=== PATIENT | male | born 1955 | race Caucasian/White ===

== ENCOUNTER 2016-12-10 17:56 | Emergency (ER) | payer BC ==
[~2016-12-10] VITALS: Ht 165.1 cm; Wt 88.3 kg
[~2016-12-10 17:56] MED LIST: ASPI81TA28 PO; METO25TA3 PO; PRT/20 PO; VALA1TAB31 PO
[2016-12-10 18:02] VITALS: TEMP 36.7; Ht 165.1 cm; Wt 88.3 kg
[2016-12-10 18:04] VITALS: O2SAT 98
[2016-12-10] MEDS ORDERED: SODIUM CHLORIDE 0.9% 1000ML 1,000 ML IV STA (18:25)
[2016-12-10] MEDS ORDERED: SODIUM CHLORIDE 0.9% 1000ML 1,000 ML IV ONE (18:25)
--- NOTE | 2016-12-10 18:32 | EMERGENCY ROOM VISIT NOTE ---
History Report prepared by Tyrone: Freya Sauceda Under the Supervision of: Dr. Valdez Gonzalez M.D. First contact with patient: 18:20 Chief Complaint: CARDIAC ASSESSMENT Stated Complaint: RACING HEART, LIGHT HEADED Nursing Triage Summary: Pt reports rapid heart rate at 1700 today hx SVT History of Present Illness The patient is a 61 year old male who presents to the Emergency Room via with complaints of an episode of racing heartbeat with onset 1.5 hours ago. The patient states that he has a history of SVT and his heart started racing about 1.5 hours ago. The patient had some chest pressure. He was getting up from sitting on the couch when he started to have these symptoms. The patient's heart was racing so quickly that he could not take his pulse. He states that he has the episodes of SVT The patient relates that he has taken his medication as prescribed. He is tired. He denies fevers, a history of heart attack, a history of atrial fibrillation. The patient takes aspirin daily. Additionally, the patient states that his neck was adjusted one day ago by his chiropractor. He denies tingling in his neck. Source of History: patient, spouse/significant other Onset: 1.5 hours ago Position: chest Quality: other (SVT) Timing: other (persistent) Associated Symptoms: + fatigue, No fevers Note: The patient denies tingling in his neck. Review of Systems See HPI for pertinent positives & negatives. A total of 10 systems reviewed and were otherwise negative. Past Medical & Surgical Medical Problems: (1) Meniscus tear (2) Shingles Surgical Problems: (1) S/P appendectomy Old medical records were reviewed. Nurse's notes were reviewed and I agree with. Family History Diabetes mellitus Heart disease Hypertension Social History Smoking Status: Former Smoker Alcohol Use: none Marital Status: Housing Status: lives with significant other Occupation Status: employed Current/Historical Medications Scheduled Aspirin (Aspirin Ec), 81 MG PO DAILY Metoprolol Succinate (Toprol Xl), 25 MG PO DAILY Multivitamin (Multivitamin), 1 TAB PO DAILY Pantoprazole (Protonix), 20 MG PO DAILY Scheduled PRN Chlorpheniramine Maleate (Chlor-Trimeton Allergy), 12 MG PO DAILY PRN for PRN Allergies Coded Allergies: Naproxen (Verified Allergy, Unknown, 12/10/16) Physical Exam Vital Signs Date Time Temp Pulse Resp B/P Pulse Ox O2 Delivery O2 Flow Rate FiO2 12/10/16 20:11 77 20 116/79 96 12/10/16 19:36 83 20 106/78 95 Room Air 12/10/16 18:38 91 18 125/67 95 Room Air 12/10/16 18:15 90 12/10/16 18:04 98 Room Air 12/10/16 18:02 36.7 102 20 131/85 98 Room Air Physical Exam General: Non ill appearing middle aged male in no acute distress. HEENT: Normal cephalic atraumatic. Pupils are equal round and reactive to light. Extraocular movements are intact. Oropharynx is pink with moist mucous membranes. No swelling of the mouth lips or tongue. Neck: Supple with a midline trachea. No meningeal signs or stiffness, no JVD or bruits. No Stridor. Chest: Clear to auscultation bilaterally. No wheezes or rhonchi. No increased work of breathing. Heart: regular rate and rhythm. Abdomen: Soft nontender, nondistended without rebound guarding or rigidity. Extremities: No cyanosis clubbing or edema. No calf tenderness or assymetry Spine/Back. Non tender to palpation. No CVA tenderness Skin: Good turgor without rashes. Neurologic exam: Cranial nerves two through 12 are intact. Motor and sensation are intact and symmetrical throughout. Medical Decision & Procedures ER Provider Diagnostic Interpretation: X-ray results as stated below per interpretation by me and the radiologist: CHEST ONE VIEW PORTABLE CLINICAL HISTORY: CHEST PAIN dyspnea COMPARISON STUDY: 02/24/2016 FINDINGS: The bones soft tissues and hemidiaphragms are normal. The cardiomediastinal silhouette is normal. The lungs are clear. The pulmonary vasculature is normal. IMPRESSION: Negative chest. Electronically signed by: Patricio Juares M.D. 12/10/2016 7:10 PM Dictated Date/Time: 12/10/2016 7:10 PM Laboratory Results 12/10/16 18:15 Red Blood Count 5.16, Mean Corpuscular Volume 81.4, Mean Corpuscular Hemoglobin 29.3, Mean Corpuscular Hemoglobin Concent 36.0, Mean Platelet Volume 10.4, Neutrophils (%) (Auto) 49.1, Lymphocytes (%) (Auto) 35.1, Monocytes (%) (Auto) 11.6, Eosinophils (%) (Auto) 3.4, Basophils (%) (Auto) 0.4, Neutrophils # (Auto ) 3.30, Lymphocytes # (Auto) 2.36, Monocytes # (Auto) 0.78, Eosinophils # (Auto ) 0.23, Basophils # (Auto) 0.03 12/10/16 18:15 Test 12/10/16 18:15 12/10/16 18:25 12/10/16 18:30 White Blood Count 6.73 K/uL (4.8-10.8) Red Blood Count 5.16 M/uL (4.7-6.1) Hemoglobin 15.1 g/dL (14.0-18.0) Hematocrit 42.0 % (42-52) Mean Corpuscular Volume 81.4 fL (80-100) Mean Corpuscular Hemoglobin 29.3 pg (25-34) Mean Corpuscular Hemoglobin Concent 36.0 g/dl (32-36) Platelet Count 240 K/uL (130-400) Mean Platelet Volume 10.4 fL (7.4-10.4) Neutrophils (%) (Auto) 49.1 % Lymphocytes (%) (Auto) 35.1 % Monocytes (%) (Auto) 11.6 % Eosinophils (%) (Auto) 3.4 % Basophils (%) (Auto) 0.4 % Neutrophils # (Auto) 3.30 K/uL (1.4-6.5) Lymphocytes # (Auto) 2.36 K/uL (1.2-3.4) Monocytes # (Auto) 0.78 K/uL (0.11-0.59) Eosinophils # (Auto) 0.23 K/uL (0-0.5) Basophils # (Auto) 0.03 K/uL (0-0.2) RDW Standard Deviation 36.6 fL (36.4-46.3) RDW Coefficient of Variation 12.5 % (11.5-14.5) Immature Granulocyte % (Auto) 0.4 % Immature Granulocyte # (Auto) 0.03 K/uL (0.00-0.02) Anion Gap 12.0 mmol/L (3-11) Est Creatinine Clear Calc Drug Dose 81.2 ml/min Estimated GFR () 95.1 Estimated GFR (Non- 82.0 BUN/Creatinine Ratio 16.7 (10-20) Calcium Level 8.7 mg/dl (8.5-10.1) Total Bilirubin 0.1 mg/dl (0.2-1) Direct Bilirubin < 0.1 mg/dl (0-0.2) Aspartate Amino Transf (AST/SGOT) 20 U/L (15-37) Alanine Aminotransferase (ALT/SGPT) 31 U/L (12-78) Alkaline Phosphatase 54 U/L (45-117) Total Creatine Kinase 168 U/L (39-308) Creatine Kinase MB 3.5 ng/ml (0.5-3.6) Total Protein 7.2 gm/dl (6.4-8.2) Albumin 3.8 gm/dl (3.4-5.0) Lipase 136 U/L (73-393) Creatine Kinase MB Ratio (0-3.0) Bedside Troponin I 0.000 ng/ml (0-0.045) Laboratory studies as stated above per my review. Medications Administered Medications (Trade) Dose Ordered Sig/Christiano Route Start Time Stop Time Status Last Admin Dose Admin Sodium Chloride (Nss 1000ml) 1,000 ml @ 999 mls/hr Q1H1M STAT IV 12/10/16 18:25 12/10/16 19:25 DC 12/10/16 18:25 999 MLS/HR ECG Indication: chest pain Rate (beats per minute): 93 Rhythm: normal sinus Findings: no acute ischemic change, no ectopy Comparison ECG Date: May 24, 2016 Change: no significant change ED Course 1821: Past medical records reviewed. The patient was evaluated in room C3, and a complete history and physical examination were performed. 1824: Sodium Chloride 1000 ml @ 150 mls/hr IV, Sodium Chloride 1000 ml @ 999 mls /hr IV 1858: I reevaluated the patient; he is resting comfortably and has normal sinus rhythm on the monitor. 1930: I reevaluated the patient; he is resting comfortably. 1945: I reevaluated the patient; he is doing well. I discussed the results and treatment plan with the patient. He verbalized agreement of the treatment plan. The patient was discharged home. Medical Decision Differentials include, but are not limited to; PSVT, atrial fibrillation, acute coronary syndrome, arrhythmia, electrolyte or metabolic abnormality. This patient comes in as described above. He apparently does have a history of PSVT. He seems to have broken himself using vagal maneuvers at home and he feels better. At present, he has no chest pain or shortness of breath. On the monitor, he has normal sinus rhythm. EKG does not suggest acute coronary syndrome or arrhythmia. He was observed in the ER had no further arrhythmia. He has no electrolyte or metabolic abnormalities. he has no elevation of cardiac enzymes. he has nothing to suggest congestive heart failure. Clinically , has nothing to suggest a pulmonary process. I do think he can go home and he agrees with this as does his . He will be discharged home. I encouraged him follow-up with his flume maker and primary doctor this week for recheck and return to ER if symptoms recur, chest pain, shortness of breath, any new problems or concerns. Impression Primary Impression: Palpitations Additional Impression: Nonsustained supraventricular tachycardia Scribe Attestation The scribe's documentation has been prepared under my direction and personally reviewed by me in its entirety. I confirm that the note above accurately reflects all work, treatment, procedures, and medical decision making performed by me. Departure Information Dispostion Home / Self-Care Referrals David Maria III, M.D. (PCP) Forms IMPORTANT VISIT INFORMATION Patient Instructions [facility] Additional Instructions Rest. Drink plenty of fluids. Return if: Worsening of symptoms, recurrent symptoms, fever or chills, chest pain, shortness of breath, any new problems or concerns. Follow-up with your doctor in 1-2 days recheck. Problem Qualifiers
[2016-12-10] MEDS ORDERED: MULT-506 PO (18:41)
[2016-12-10] MEDS ORDERED: CHLO12TA2 PO (18:41)
[2016-12-10 18:46] LABS: BASO % 0.4 %; BASO ABS # 0.03 K/uL (0-0.2); COMPLETE YES; EOS % 3.4 %; IG% 0.4 %; LYMPH % 35.1 %; LYMPH ABS # 2.36 K/uL (1.2-3.4); MEAN CELL VOLUME 81.4 fL (80-100); MEAN CORPUSCULAR HEMOGLOBIN 29.3 pg (25-34); MEAN PLATELET VOLUME 10.4 fL (7.4-10.4); MONO % 11.6 %; NEUT % 49.1 %; PLATELET COUNT 240 K/uL (130-400); RED BLOOD COUNT 5.16 M/uL (4.7-6.1); WHITE BLOOD COUNT 6.73 K/uL (4.8-10.8)
--- NOTE | 2016-12-10 19:12 | DIAGNOSTIC IMAGING REPORT ---
CHEST ONE VIEW PORTABLE CLINICAL HISTORY: CHEST PAIN dyspnea COMPARISON STUDY: 02/24/2016 FINDINGS: The bones soft tissues and hemidiaphragms are normal. The cardiomediastinal silhouette is normal. The lungs are clear. The pulmonary vasculature is normal. IMPRESSION: Negative chest. Electronically signed by: Patricio Juares M.D. 12/10/2016 7:10 PM Dictated Date/Time: 12/10/2016 7:10 PM
[2016-12-10 19:30] LABS: ALKALINE PHOSPHATASE 54 U/L (45-117); ALT/SGPT 31 U/L (12-78); BLOOD UREA NITROGEN 17 mg/dl (7-18); BUN/CREATININE RATIO 16.7 (10-20); CALCIUM 8.7 mg/dl (8.5-10.1); CARBON DIOXIDE 23 mmol/L (21-32); CHLORIDE 109 mmol/L (98-107); GLUCOSE 129 mg/dl (70-99); POTASSIUM 3.5 mmol/L (3.5-5.1); SODIUM 144 mmol/L (136-145)
[2016-12-10 19:31] LABS: AST/SGOT 20 U/L (15-37); CKMB/CK RATIO 2.1 (0-3.0)
[2016-12-10 20:11] VITALS: BP 116/79; PULSE 77; O2SAT 96
== END 2016-12-10 20:13 | disposition home or self-care (01) ==
LOC: C.EDB 17:57 → C.EDC 20:13
DX: R00.2 Palpitations (principal); I47.1 Supraventricular tachycardia; Z87.891 Personal history of nicotine dependence; Z79.82 Long term (current) use of aspirin; Z79.899 Other long term (current) drug therapy; Z83.3 Family history of diabetes mellitus; Z82.49 Family history of ischemic heart disease and other diseases of the circulatory system

== ENCOUNTER 2017-02-23 11:06 | Emergency (ER) | payer BC ==
[~2017-02-23] VITALS: Ht 167.6 cm; Wt 89.8 kg
[~2017-02-23 11:06] MED LIST changes: +CHLO12TA2 PO; +MULT-506 PO; -VALA1TAB31 PO
[2017-02-23 11:09] VITALS: TEMP 36.5; Ht 167.6 cm; Wt 89.8 kg
[2017-02-23 11:19] VITALS: O2SAT 94
[2017-02-23 11:20] VITALS: BP 137/91; O2SAT 96
[2017-02-23 11:22] VITALS: PULSE 74
--- NOTE | 2017-02-23 19:16 | EMERGENCY ROOM VISIT NOTE ---
ED Visit Note First contact with patient: 11:27 Chief Complaint: Supraventricular tachycardia. History of Present Illness: Mr. Gomez is a 61-year-old white male who ambulates into the ED accompanied by his complaining of a recurrence of supraventricular tachycardia. Historically patient reports he has a history of SVT. He will be seen by a software developer intern in 2 weeks for evaluation of ablation or other treatments related to his SVT. Patient reports approximately one hour ago he was exercising and noticed on the monitor of the exercising machine he was using his heart rate went from 120 to180. Shortly after he noticed increase in heart rate he fell lightheaded. He sat down and the lightheadedness resolved. He attempted a Valsalva maneuver that was taught to him by his software developer intern and he was able to break his SVT. He goes on to report that shortly after he broke initial SVT he had return of his symptoms. He called his and then came to the hospital. On the way to the hospital he continued to attempt Valsalva maneuvers and was able to break his SVT prior to arrival at the hospital. During these episodes of tachycardia his only symptom was that he was slightly lightheaded. Currently he is symptom-free and is not experiencing any lightheadedness or sensations of tachycardia. He denies any upper respiratory tract symptoms, previous clots, claudication, cramping, chest pain/discomfort, recent surgery/inactivity/extended travel, abdominal pain, nausea, vomiting. Review of Systems: As noted above in history of present illness. All body systems were reviewed and found to be negative as noted above. Past Medical History: As previously noted and status post appendectomy and unspecified knee surgery. Current Medications: Medications Dose Route/Sig Max Daily Dose Days Date Category Dose Instructions Multivitamin (Multivitamins) Tab 1 Tab PO DAILY 12/10/16 Reported Chlor-Trimeton Allergy (Chlorpheniramine Maleate) 12 Mg Tab 12 Mg PO DAILY PRN 12/10/16 Reported Protonix (Pantoprazole Sodium) 20 Mg Tab 20 Mg PO DAILY 02/24/16 Reported TAKE THIS MEDICATION ONCE DAILY ONE HOUR BEFORE FIRST MEAL OF THE DAY. Toprol Xl (Metoprolol Succinate) 25 Mg Tabcr 25 Mg PO DAILY 02/24/16 Reported Aspirin Ec (Aspirin) 81 Mg Tab 81 Mg PO DAILY 02/24/16 Reported Allergies to Medications: Naproxen. Social History: Patient is currently employed; he lives with his and feels safe in his home environment; he denies tobacco and alcohol use. Physical Examination: Vital Signs: Date Time Temp Pulse Resp B/P Pulse Ox O2 Delivery O2 Flow Rate FiO2 02/23/17 11:22 74 02/23/17 11:20 78 18 137/91 96 Room Air 02/23/17 11:09 36.5 83 18 125/89 98 Room Air GENERAL: 61-year-old male in no acute distress, nontoxic-appearing, afebrile and hemodynamically stable. NEUROLOGICAL: Awake, alert and oriented to person, place and time. Answering questions appropriately and following commands. Normal gait. Good hand eye coordination. No focal motor sensory deficits. SKIN: Warm, dry and pink. No soft tissue eruptions or trauma noted. HEENT: Atraumatic and normocephalic. PERRLA. Sclera white and conjunctiva pink. Airway patent. Pharynx is nonerythematous or edematous. Speech normal. No lymphadenopathy. Trachea midline. No jugular venous distention. No carotid bruits. BACK: No tenderness over the bony spine. No CVA tenderness. THORAX: Lungs sounds are clear to auscultation and equal bilaterally with symmetrical chest wall. No wheezing, rales or rhonchi. No crepitus, tenderness , subcutaneous air or deformities noted. HEART: Regular rate and rhythm. No gallops, rubs or murmurs are appreciated. No lifts, heaves or thrills. PMI is not displaced. ABDOMEN: Flat, soft and nontender. Positive bowel sounds in all quadrants. No guarding, rigidity or organomegaly. EXTREMITIES: Moves all extremities well on command and with purpose. All distal neurovascular statuses are intact and equal bilaterally. No calf tenderness or cords. ED Course: Patient is assessed as noted above. EKG: Was read by myself and reviewed with Dr. Streeter; shows normal sinus rhythm with a ventricular rate of 75 bpm. Normal axis, intervals and complexes. No acute ST changes noted. I do not appreciate any appearance of EKG can changes consistent with significant arrhythmias. This was compared to her previous from November 2016 in no acute changes were noted. I did discuss testing and reevaluation with the patient but he did not want any additional testing done and felt he was stable to go home. Patient's case was reviewed with Dr. Streeter; we agreed on diagnostic approach, treatment, disposition and plan. Patient was educated about today's findings and instructed on his treatment plan ; we agreed on diagnostic approach, treatment, disposition and plan. Clinical Impression: Supraventricular tachycardia, resolved. Decision-Making: Initially my differential diagnosis I considered arrhythmia, DVT, pulmonary embolism, electrolyte abnormality, coronary ischemia and other causes. Disposition: Patient discharged home in stable condition accompanied by his ; prior to departure he was reassessed and subjectively reported he continued to be pain and symptom-free. Plan: Continue any medications that are prescribed by your personal care providers. Stay well-hydrated with increased clear fluids. Avoid stimulants as we discussed. I would contact your family doctor and also your software developer intern and just inform them of today's ED visit so they may review your EKG. Return to the ED for return of tachycardia, return of lightheadedness, chest pain, shortness of breath or any new/concerning symptoms.
== END 2017-02-23 11:59 | disposition home or self-care (01) ==
LOC: C.EDB 11:07 → C.EDC 11:59
DX: I47.1 Supraventricular tachycardia (principal); Z79.82 Long term (current) use of aspirin; Z79.899 Other long term (current) drug therapy